=== PATIENT | male | born 1970 | race Hispanic/Latino ===

== ENCOUNTER 2018-06-22 16:30 | Inpatient (IN) | payer OTHER ==
[~2018-06-22] VITALS: Ht 152.4 cm; Wt 82.6 kg
[2018-06-22 18:29] LABS: BASOPHILS % (AUTO) 0.3 % (0.0-5.0); EOSINOPHILS % (AUTO) 0.5 % (0.0-8.0); LYMPHOCYTES % (AUTO) 7.3 % (21.0-51.0); MEAN CORPUSCULAR HEMOGLOBIN 30.1 pg (27.0-33.0); MEAN CORPUSCULAR HGB CONC 35.2 g/dL (32.0-36.0); MEAN CORPUSCULAR VOLUME 85.6 fL (79-99); MONOCYTES % (AUTO) 7.2 % (3.0-13.0); NEUTROPHILS % (AUTO) 84.7 % (40.0-77.0); NUCLEATED RED BLOOD CELLS 0.1 % (0.0-0.19); PLATELET COUNT (AUTO) 97 K/uL (130-400); RED BLOOD CELL COUNT(AUTO) 5.26 MIL/uL (4.50-6.20); RED CELL DISTRIBUTION WIDTH 13.8 % (11.0-15.5); WHITE BLOOD COUNT (AUTO) 9.4 K/uL (4.8-10.8)
[2018-06-22 18:36] LABS: CREATININE 1.2 mg/dL (0.5-1.5)
[2018-06-22 18:42] LABS: PARTIAL THROMBOPLASTIN TIME 27.2 SEC (26.3-35.5); PROTHROMBIN TIME 10.5 SEC (9.6-11.6)
[2018-06-22] MEDS ORDERED: KETOROLAC TROMETHAMINE 15MG/ML ONE (19:44)
[2018-06-22] MEDS ORDERED: ENOXAPARIN SODIUM 30 MG/0.3 ML SQ ONE (21:48)
[2018-06-22] MEDS ORDERED: HYDROCODONE/ACETAMINOPHEN 5/325 MG TAB PO PRN ×2 (23:45)
[2018-06-22] MEDS ORDERED: KETOROLAC TROMETHAMINE 15MG/ML IM PRN (23:45)
[2018-06-22] MEDS ORDERED: HYDROCODONE/ACETAMINOPHEN 5/325 MG TAB ONE (23:45)
[2018-06-23] VITALS (18 sets, daily range): BP systolic 100–148; BP diastolic 57–97
[2018-06-23] MEDS ORDERED: SODIUM CHLORIDE 0.9% 10 ML VIAL IVP PRN (00:15)
[2018-06-23] MEDS ORDERED: ONDANSETRON HCL MDV 20ML 2 MG/ML VIAL IVP PRN (00:15)
--- NOTE | 2018-06-23 09:30 | NUR ---
[facility] CM met with pt currently under the care of [facility]. Pt is independent prior to admission. Denies any equipments/services. DC plan back to [facility]. CM to cont to follow up. Addendum: 06/23/18 at 1411 by SEE ORTIZ LVN Amended: Links added.
[2018-06-23] MEDS ORDERED: LACTATED RINGERS 1000ML 1,000 ML IV ONE (11:00)
[2018-06-23] MEDS: CEFAZOLIN SODIUM 1 GM VIAL IVP PRN ×2 (11:05→14:50)
[2018-06-23] MEDS ORDERED: CEFAZOLIN SODIUM 1 GM VIAL ONE (12:42)
[2018-06-23] MEDS ORDERED: PROPOFOL 10 MG/ML 20ML VIAL IV ONE (13:52)
[2018-06-23] MEDS ORDERED: FENTANYL CITRATE PF 50 MCG/1 ML 2ML VIAL ONE ×2 (13:52→16:12)
[2018-06-23] MEDS ORDERED: LIDOCAINE PF 2% 5ML ABBOJECT ONE (13:52)
[2018-06-23] MEDS ORDERED: ROCURONIUM 10MG/1ML SYR 10 MG/ML ML ONE (13:52)
[2018-06-23] MEDS ORDERED: SUCCINYLCHOLINE 200MG/10ML SYR ONE (13:52)
[2018-06-23] MEDS ORDERED: ROPIVACAINE 0.5% 5MG/ML 30ML IJ ONE ×2 (13:57→13:59)
[2018-06-23] MEDS ORDERED: NEOSTIGMINE 5MG/5ML SYR IV ONE (16:08)
[2018-06-23] MEDS ORDERED: GLYCOPYRROLATE 1 MG/5 ML SYRINGE ONE (16:08)
[2018-06-23] MEDS ORDERED: KETOROLAC TROMETHAMINE 30MG/ML ONE (16:09)
[2018-06-23] MEDS ORDERED: LIDOCAINE HCL-MPF 1% 2ML VIAL IVP PRN (16:30)
[2018-06-23] MEDS ORDERED: PROMETHAZINE HCL 25 MG/ML 1ML AMPULE IM PRN (16:30)
[2018-06-23] MEDS ORDERED: HYDROCODONE/ACETAMINOPHEN 5/325 MG TAB PO PRN (16:30)
[2018-06-23] MEDS ORDERED: POTASSIUM CHLORIDE 10% ELIXIR 20 MEQ/15 ML UDCUP PO PRN (16:30)
[2018-06-23] MEDS ORDERED: POTASSIUM CHLORIDE 20MEQ/100ML 100 ML IV PRN (16:30)
[2018-06-23] MEDS ORDERED: POTASSIUM CHLORIDE 20 MEQ ERTAB PO PRN (16:30)
[2018-06-23] MEDS ORDERED: DiphenhydrAMINE HCL 50 MG/ML VIAL IVP PRN (16:30)
[2018-06-23] MEDS ORDERED: DIPHENHYDRAMINE HCL 25 MG CAPSULE PO PRN (16:30)
[2018-06-23] MEDS ORDERED: TEMAZEPAM 15 MG CAPSULE PO PRN (16:30)
[2018-06-23] MEDS ORDERED: KETOROLAC TROMETHAMINE 15MG/ML IV PRN (16:30)
[2018-06-23] MEDS ORDERED: CALCIUM CARBONATE 500 MG TABLET PO PRN (16:30)
[2018-06-23] MEDS ORDERED: MEPERIDINE-PF 25 MG/ML SYG ONE (16:44)
[2018-06-23] MEDS ORDERED: ONDANSETRON HCL 4 MG/2 ML VIAL ONE (17:13)
--- NOTE | 2018-06-23 17:43 | NUR ---
POST SURGERY PATIENT RECEIVED FROM SURGERY VIA HOSPITAL BED IN STABLE CONDITION. HE IS A DETAINEE FOR [facility]. THE OFFICER IS PRESENT IN THE ROOM. HE HAS BEEN ORIENTED TO ROOM AND USE OF CALL LIGHT. HE DENIES PAIN AT THIS TIME. DRESSING TO RIGHT KNEE IS DRY AND INTACT WITH IMMOBILIZER IN PLACE. IV IS PATENT WITH IV FLUIDS INFUSING, NO REDNESS OR SWELLING NOTED TO SITE. POST OP V/S HAVE BEEN INITIATED. BED IS IN LOWEST POSITION AND LOCKED. WILL CONTINUE TO MONITOR.
[2018-06-23] MEDS: SODIUM CHLORIDE 0.9% 1000ML 1,000 ML IV SCH (19:22)
[2018-06-23] MEDS: FAMOTIDINE 20MG TAB 20 MG TAB PO SCH (19:24)
[2018-06-23] MEDS: ASPIRIN 325 MG TABLET PO SCH (19:24)
[2018-06-23] MEDS: HYDROCODONE/ACETAMINOPHEN 5/325 MG TAB PO PRN (19:25)
--- NOTE | 2018-06-23 20:00 | NUR ---
PM ASSESSMENT PATIENT RESTING IN BED WITH DRESSING TO RIGHT KNEE DRY AND INTACT WITH IMMOBILIZER IN PLACE. ALL QUESTIONS AND CONCERNS ADDRESSED
[2018-06-23] MEDS: CEFAZOLIN SODIUM 1 GM VIAL IVP SCH (22:13)
[2018-06-24] VITALS: BP 102/69
[2018-06-24] MEDS: HYDROCODONE/ACETAMINOPHEN 5/325 MG TAB PO PRN ×3 (00:09→09:44)
[2018-06-24] MEDS: SODIUM CHLORIDE 0.9% 1000ML 1,000 ML IV SCH (01:34)
[2018-06-24 04:00] VITALS: BP 106/63
[2018-06-24 04:37] LABS: HEMATOCRIT 35.1 % (42-54); MEAN CORPUSCULAR HEMOGLOBIN 29.8 pg (27.0-33.0); MEAN CORPUSCULAR HGB CONC 34.7 g/dL (32.0-36.0); MEAN CORPUSCULAR VOLUME 85.9 fL (79-99); PLATELET COUNT (AUTO) 78 K/uL (130-400); RED BLOOD CELL COUNT(AUTO) 4.08 MIL/uL (4.50-6.20); RED CELL DISTRIBUTION WIDTH 13.7 % (11.0-15.5); WHITE BLOOD COUNT (AUTO) 6.6 K/uL (4.8-10.8)
[2018-06-24 04:58] LABS: CREATININE 1.1 mg/dL (0.5-1.5); POTASSIUM 3.9 mmol/L (3.5-5.1)
[2018-06-24] MEDS: CEFAZOLIN SODIUM 1 GM VIAL IVP SCH (06:50)
[2018-06-24] MEDS ORDERED: NAPR-1023 PO (07:32)
[2018-06-24] MEDS ORDERED: TYL3 PO (07:32)
[2018-06-24 08:00] VITALS: BP 100/65
[2018-06-24] MEDS ORDERED: POLYETHYLENE GLYCOL 3350 17 GM POWD.PACK PO SCH (09:00)
[2018-06-24] MEDS ORDERED: TAMSULOSIN HCL 0.4 MG CAP.ER.24H PO SCH (09:00)
[2018-06-24] MEDS: ASPIRIN 325 MG TABLET PO SCH (09:40)
[2018-06-24] MEDS: FAMOTIDINE 20MG TAB 20 MG TAB PO SCH (09:40)
[2018-06-24 11:46] VITALS: BP 107/69
[2018-06-25] MEDS ORDERED: BISACODYL 5 MG TABLET.DR PO PRN (16:30)
== END 2018-06-24 14:11 | DRG 501 ==
LOC: EDH 16:30 → EDHIP 16:31 → 4CH 22:00 → 4AH 06-23 13:05
PROVIDERS: ADMIT Orthopaedic Surgery; ATTEND Orthopaedic Surgery
PROC: 0LQQ0ZZ Repair Right Knee Tendon, Open Approach (ICD-10-PCS; principal; 2018-06-23 15:11)
DX: S86.811A Strain of other muscle(s) and tendon(s) at lower leg level, right leg, initial encounter (principal); M25.061 Hemarthrosis, right knee; D69.6 Thrombocytopenia, unspecified; M22.41 Chondromalacia patellae, right knee; W18.39XA Other fall on same level, initial encounter; Y93.89 Activity, other specified; Y92.89 Other specified places as the place of occurrence of the external cause; Y99.8 Other external cause status
CPT/HCPCS: 36415; 71045; 73562; 80048; 85025; 85027; 85610; 85730; 93005; A4218; G0378; J0330; J0690; J1650; J1885; J2001; J2175; J2405; J2704; J2710; J2795; J3010; J3490; J7120; Q2035

== ENCOUNTER 2018-06-25 15:50 | Emergency (ER) | payer OTHER ==
[~2018-06-25 15:50] MED LIST: NAPR-1023 PO; TYL3 PO
[2018-06-25 16:39] LABS: BASOPHILS % (AUTO) 0.4 % (0.0-5.0); EOSINOPHILS % (AUTO) 0.4 % (0.0-8.0); HEMATOCRIT 33.5 % (42-54); LYMPHOCYTES % (AUTO) 10.3 % (21.0-51.0); MEAN CORPUSCULAR HEMOGLOBIN 29.8 pg (27.0-33.0); MEAN CORPUSCULAR HGB CONC 34.7 g/dL (32.0-36.0); MONOCYTES % (AUTO) 10.2 % (3.0-13.0); NEUTROPHILS % (AUTO) 78.7 % (40.0-77.0); PLATELET COUNT (AUTO) 112 K/uL (130-400); RED CELL DISTRIBUTION WIDTH 13.6 % (11.0-15.5); WHITE BLOOD COUNT (AUTO) 8.8 K/uL (4.8-10.8)
[2018-06-25 16:52] LABS: RAPID GROUP A STREP NEGATIVE (NEGATIVE)
[2018-06-25 16:57] LABS: CREATININE 0.9 mg/dL (0.5-1.5); POTASSIUM 3.9 mmol/L (3.5-5.1)
[2018-06-25 18:09] LABS: APPEARANCE,URINE CLEAR (CLEAR); BILIRUBIN,URINE NEGATIVE (NEGATIVE); COLOR,URINE YELLOW (YELLOW); GLUCOSE, URINE (UA) NEGATIVE (NEGATIVE); KETONES,URINE NEGATIVE (NEGATIVE); LEUKOCYTE ESTERASE ,URINE NEGATIVE (NEGATIVE); NITRATE,URINE NEGATIVE (NEGATIVE); OCCULT BLOOD,URINE NEGATIVE (NEGATIVE); PH,URINE 6.5 (5.0-8.0); PROTEIN,URINE NEGATIVE (NEGATIVE)
[2018-06-25] MEDS ORDERED: IBUPROFEN 600 MG TABLET ONE (19:00)
== END 2018-06-25 19:07 | disposition home or self-care (01) ==
LOC: EDH 15:50
DX: J06.9 Acute upper respiratory infection, unspecified (principal); J02.9 Acute pharyngitis, unspecified; Z98.890 Other specified postprocedural states
CPT/HCPCS: 36415; 71045; 80048; 81003; 85025; 87804; 87880